=== PATIENT | female | born 1965 | race Caucasian/White ===

== ENCOUNTER → 2018-10-03 10:31 | Outpatient (CLI) | payer OTHER, SELFPAY ==
--- NOTE | 2018-10-03 | DI.MG.S_ITS ---
BILATERAL DIGITAL SCREENING MAMMOGRAM 3D/2D WITH CAD: 10/03/2018 CLINICAL: Routine screening. Family history of breast cancer. Comparison is made to exam dated: 08/24/2016 mammogram - [facility]. The tissue of both breasts is heterogeneously dense. This may lower the sensitivity of mammography. Current study was also evaluated with a Computer Aided Detection (CAD) system. There is new cluster of grouped fine calcifications in the left breast posterior depth superior region seen on the mediolateral oblique view only. No other significant masses, calcifications, or other findings are seen in either breast. IMPRESSION: INCOMPLETE: NEEDS ADDITIONAL IMAGING EVALUATION The new cluster of grouped fine calcifications in the left breast are indeterminate. Additional views are recommended. This exam was interpreted at Station ID: [id number]. NOTE: For mammograms, a report in lay terms will be sent to the patient. Approximately 15% of breast malignancies will not be visualized mammographically. In the management of a palpable breast mass, a negative mammogram must not discourage biopsy of a clinically suspicious lesion. Electronically Signed By: Zuri clay/:10/04/2018 13:27:58 letter sent: Additional Imaging Needed ACR BI-RADS Category 0: Incomplete 3340F
== END ==
PROVIDERS: Visit Provider Nurse Practitioner Family
DX: Z12.31 Encounter for screening mammogram for malignant neoplasm of breast (principal); Z80.3 Family history of malignant neoplasm of breast
CPT/HCPCS: 77063; 77067

== ENCOUNTER → 2018-10-20 08:47 | Outpatient (CLI) | payer OTHER, SELFPAY ==
--- NOTE | 2018-10-20 | DI.MG.S_ITS ---
UNILATERAL LEFT DIGITAL DIAGNOSTIC MAMMOGRAM 3D/2D WITH ADDITIONAL VIEWS: 10/20/2018 CLINICAL: Additional evaluation requested from prior study. Comparison is made to exams dated: 10/03/2018 mammogram - [facility] and 08/24/2016 mammogram - [facility]. The tissue of left breast is heterogeneously dense. This may lower the sensitivity of mammography. There is new 5 mm cluster of grouped fine calcifications in the left breast middle depth superior region seen on the mediolateral oblique view only. These are seen in additional tomosynthesis and compression views. No other significant masses or calcifications are seen in the breast. IMPRESSION: SUSPICIOUS OF MALIGNANCY The new 5 mm cluster of grouped fine calcifications in the left breast middle depth superior region seen on the mediolateral oblique view only are suspicious of malignancy. A stereotactic biopsy is recommended. This exam was interpreted at Station ID: [id number]. NOTE: For mammograms, a report in lay terms will be sent to the patient. Approximately 15% of breast malignancies will not be visualized mammographically. In the management of a palpable breast mass, a negative mammogram must not discourage biopsy of a clinically suspicious lesion. Electronically Signed By: Baljit Salomon M.D. slc/:10/24/2018 09:37:24 letter sent: Biopsy Required ACR BI-RADS Category 4: Suspicious abnormality 3344F
== END ==
PROVIDERS: Visit Provider Nurse Practitioner Family
DX: R92.1 Mammographic calcification found on diagnostic imaging of breast (principal)
CPT/HCPCS: 77065; G0279

== ENCOUNTER → 2018-12-15 07:38 | Outpatient (CLI) | payer OTHER, SELFPAY ==
--- NOTE | 2018-12-15 | DI.MRI.S_ITS ---
BREAST MRI OF BOTH BREASTS: 12/15/2018 CLINICAL: Abnormal mammogram. PROCEDURE: MR BREAST BI WO/W CON INDICATIONS: ABNORMAL MAMMO LEFT BREAST TECHNIQUE: The patient was placed prone in a dedicated breast imaging coil. Precontrast axial STIR and 3D FLASH without fat saturation sequences were obtained. Both before and after bolus injection of contrast, sequential 1-minute axial 3D FLASH with fat saturation sequences for 3 time points, with subtraction images and maximum intensity projections (MIP's) generated. Delayed sagittal FLASH images with fat saturation were also obtained. Computer-aided detection, including computer algorithm analysis of MRI image data for lesion detection and characterization, pharmacokinetic analysis, with further physician review for interpretation, was performed. COMPARISON: Mammograms 11/09/2018, 10/20/2018, 10/03/2018, 08/24/2016. FINDINGS: Image quality: Excellent. There is mild background parenchymal enhancement. Heterogeneous fibroglandular tissue. Right breast: No mass or suspicious non-Mass enhancement. There are at least 3 sub-5 mm foci of enhancement. A few tiny cysts. Left breast: No mass or suspicious non-Mass enhancement. There are at least 2 sub-5 mm foci of enhancement. No abnormality identified in the region of grouped fine calcifications the left breast. A few tiny cysts. Miscellaneous: No enlarged or suspicious lymph nodes. No internal mammary nodes. IMPRESSION: SUSPICIOUS OF MALIGNANCY Overall BIRADS 4 Left Breast for previously seen calcifications in the upper quadrant. Recommend follow-up diagnostic mammogram in 6 month to re-evaluate the calcifications. 1. Right breast: No mass or suspicious non-Mass enhancement. 2. Left breast: No mass or suspicious non-Mass enhancement. No abnormality identified in the region of grouped fine calcifications the left breast. 3. No suspicious adenopathy. COMMENT: The imaging literature indicates that a negative contrast breast MRI examination has a high sensitivity and a moderate specificity for detecting and excluding invasive carcinomas to a detection threshold of 3-5 mm; nonetheless, appropriate clinical and mammographic follow-up are recommended. MRI is not sensitive for detecting DCIS (ductal carcinoma in situ) and may not detect large invasive neoplasms that show only minimal enhancement such as mucinous carcinoma. If there are suspicious calcifications or clinically worrisome palpable masses, then biopsy should still be considered. Invasive neoplasms can be hidden by co-existent and benign enhancement caused by mastitis, hormone therapy effects, radiation therapy, , and recent biopsy or surgery. False positive examinations can occur in a number of circumstances, including breasts that have recently been subject to invasive procedures and those that contain atypical ductal hyperplasia, hormonally stimulated glandular tissue, fat necrosis, or radial scars. Dictated by: Baljit Salomon M.D. on 12/15/2018 at 16:13 This exam was interpreted at Station ID: [id number]. Electronically Signed By: Baljit Salomon M.D. slc/:12/15/2018 16:42:55 ACR BI-RADS Category 4: Suspicious abnormality 3344F
== END ==
PROVIDERS: PCP Nurse Practitioner Family; Visit Provider Nurse Practitioner Family
DX: R92.8 Other abnormal and inconclusive findings on diagnostic imaging of breast (principal); R92.1 Mammographic calcification found on diagnostic imaging of breast
CPT/HCPCS: 77049; A9579

== ENCOUNTER → 2019-08-09 09:45 | Outpatient (CLI) | payer OTHER, SELFPAY ==
--- NOTE | 2019-08-09 | DI.MG.S_ITS ---
BILATERAL DIGITAL DIAGNOSTIC MAMMOGRAM 3D/2D SHORT-TERM FOLLOW-UP: 08/09/2019 CLINICAL: Patient returns for a 6 month follow up of the left breast, due for bilateral imaging. Comparison is made to exams dated: 11/09/2018 mammogram - [facility], 10/20/2018 mammogram, 10/03/2018 mammogram, 12/15/2018 breast MRI - [facility], and 08/24/2016 mammogram - [facility]. The tissue of both breasts is heterogeneously dense. This may lower the sensitivity of mammography. There are stable 0.5 cm grouped fine calcifications in the left breast posterior depth superior region seen on the mediolateral oblique view only. These calcifications appeared new on the screening mammogram on 10/03/2018. Other more diffuse calcifications in both breast were also new or more conspicuous. This may be in part related to difference in mammography technique. No suspicious enhancement was seen in this region on prior MRI. No other significant masses, calcifications, or other findings are seen in either breast. IMPRESSION: PROBABLY BENIGN Stable 0.5 cm grouped fine calcifications in the left breast. These are probably benign given lack of suspicious enhancement on prior MRI. Patient is scheduled for breast MRI to follow this exam. A follow-up left breast mammogram in 6 months is recommended to demonstrate continued stability. Exam findings were conveyed to the patient by the chief psychology. This exam was interpreted at Station ID: [id number]. NOTE: For mammograms, a report in lay terms will be sent to the patient. Approximately 15% of breast malignancies will not be visualized mammographically. In the management of a palpable breast mass, a negative mammogram must not discourage biopsy of a clinically suspicious lesion. Electronically Signed By: Baljit Salomon M.D. [facility] [place]/:08/09/2019 10:46:07 letter sent: Followup Recommended ACR BI-RADS Category 3: Probably benign 3343F
--- NOTE | 2019-08-09 | DI.MRI.S_ITS ---
BREAST MRI OF BOTH BREASTS: 08/09/2019 CLINICAL: Abnormal Left breast. PROCEDURE: MR BREAST BI WO/W CON INDICATIONS: Left breast calcifications. TECHNIQUE: The patient was placed prone in a dedicated breast imaging coil. Precontrast axial STIR and 3D FLASH without fat saturation sequences were obtained. Both before and after bolus injection of contrast, sequential 1-minute axial 3D FLASH with fat saturation sequences for 3 time points, with subtraction images and maximum intensity projections (MIP's) generated. Delayed sagittal FLASH images with fat saturation were also obtained. Contrast: 20 cc ProHance IV contrast. Computer-aided detection, including computer algorithm analysis of MRI image data for lesion detection and characterization, pharmacokinetic analysis, with further physician review for interpretation, was performed. COMPARISON: [facility], , DIAGNOSTIC MAMMO BI, 08/09/2019, 10:07. [facility], , DIAGNOSTIC UNILATERAL LEFT, 11/09/2018, 13:39. [facility], , SPECIAL VIEW LT, 10/20/2018, 9:20. [facility], SCREENING MAMMO BI, 10/03/2018, 11:06. [facility], , MM DIAGNOSTIC MAMMO BILAT 2D, 08/24/2016, 11:13. [facility], , MR BREAST BI WO/W CON, 12/15/2018, 8:27. FINDINGS: Image quality: Excellent. Amount of fibroglandular tissue: Heterogeneous fibroglandular tissue. There is minimal background parenchymal enhancement. Right breast: No mass or suspicious enhancement. Enhancing foci measuring less than 5 mm are stable to decreased. There is corresponding intrinsic T1 hyperintensity and T2 hyperintensity. These most likely represent small intramammary lymph nodes. Left breast: No mass. No suspicious enhancement in the superior left breast posterior depth in the region of grouped calcifications seen on mammogram. Enhancing foci measuring less than 5 mm are stable to decreased. There is corresponding intrinsic T1 hyperintensity and T2 hyperintensity. These most likely represent small intramammary lymph nodes. Miscellaneous: No enlarged lymph nodes. Small axillary lymph nodes are unchanged in appearance. IMPRESSION: PROBABLY BENIGN 1. Right breast: No mass or suspicious enhancement. 2: Left breast: No mass or suspicious enhancement. No clumped or clustered ring enhancement in the superior region posterior depth at the site of grouped calcifications on prior mammograms. 3. No enlarged lymph nodes. BIRADS 3. -Recommend followup left breast diagnostic mammogram for previously seen grouped calcifications. COMMENT: The imaging literature indicates that a negative contrast breast MRI examination has a high sensitivity and a moderate specificity for detecting and excluding invasive carcinomas to a detection threshold of 3-5 mm; nonetheless, appropriate clinical and mammographic follow-up are recommended. MRI is not sensitive for detecting DCIS (ductal carcinoma in situ) and may not detect large invasive neoplasms that show only minimal enhancement such as mucinous carcinoma. If there are suspicious calcifications or clinically worrisome palpable masses, then biopsy should still be considered. Invasive neoplasms can be hidden by co-existent and benign enhancement caused by mastitis, hormone therapy effects, radiation therapy, , and recent biopsy or surgery. False positive examinations can occur in a number of circumstances, including breasts that have recently been subject to invasive procedures and those that contain atypical ductal hyperplasia, hormonally stimulated glandular tissue, fat necrosis, or radial scars. Dictated by: Baljit Salomon M.D. on 08/09/2019 at 15:10 This exam was interpreted at Station ID: [id number]. Electronically Signed By: Baljit Salomon M.D. slc/:08/09/2019 15:38:48 letter sent: Followup Recommended ACR BI-RADS Category 3: Probably benign 3343F
== END ==
PROVIDERS: PCP Nurse Practitioner Family; Referring Provider Nurse Practitioner Family; Visit Provider Nurse Practitioner Family
DX: R92.8 Other abnormal and inconclusive findings on diagnostic imaging of breast (principal); R92.1 Mammographic calcification found on diagnostic imaging of breast
CPT/HCPCS: 77049; 77066; G0279; A9579

== ENCOUNTER → 2020-03-03 08:43 | Outpatient (CLI) | payer OTHER, SELFPAY ==
--- NOTE | 2020-03-03 | DI.MG.S_ITS ---
UNILATERAL LEFT DIGITAL DIAGNOSTIC MAMMOGRAM 3D/2D: 03/03/2020 CLINICAL: Patient returns for a 6 month follow up of the left breast. Comparison is made to exams dated: 08/09/2019 breast MRI, 08/09/2019 mammogram, 12/15/2018 breast MRI - [facility], 11/09/2018 mammogram - [facility], 10/20/2018 mammogram, and 10/03/2018 mammogram - [facility]. The tissue of left breast is heterogeneously dense. This may lower the sensitivity of mammography. Redemonstration of previously described 0.5 cm grouped fine calcifications in the left breast superior region seen on comparison mammograms of 10/20/18, 10/03/18, and 08/09/2019. These were not able to be targeted for stereotactic biopsy. No correlates seen on either MRIs. These again are seen on the mediolateral oblique view only. No other significant masses or calcifications are seen in the breast. IMPRESSION: PROBABLY BENIGN The stable 0.5 cm grouped fine calcifications in the left breast are probably benign. There were no correlating abnormalities seen on comparison MRIs. A follow-up mammogram in 6 months is recommended to demonstrate stability. The patient will also be due for screening mammogram of the contralateral breast at that time. Findings and recommendations were conveyed to the patient during today's evaluation. This exam was interpreted at Station ID: [id number]. NOTE: For mammograms, a report in lay terms will be sent to the patient. Approximately 15% of breast malignancies will not be visualized mammographically. In the management of a palpable breast mass, a negative mammogram must not discourage biopsy of a clinically suspicious lesion. Electronically Signed By: Magdi Bustamante M.D. at/:03/03/2020 09:41:48 letter sent: Followup Recommended ACR BI-RADS Category 3: Probably benign 3343F
== END ==
PROVIDERS: PCP Nurse Practitioner Family; Referring Provider Nurse Practitioner Family; Visit Provider Nurse Practitioner Family
DX: R92.8 Other abnormal and inconclusive findings on diagnostic imaging of breast (principal); R92.1 Mammographic calcification found on diagnostic imaging of breast
CPT/HCPCS: 77065; G0279

== ENCOUNTER → 2020-10-13 09:18 | Outpatient (CLI) | payer OTHER, SELFPAY ==
--- NOTE | 2020-10-13 | DI.MG.S_ITS ---
BILATERAL DIGITAL DIAGNOSTIC MAMMOGRAM 3D/2D: 10/13/2020 CLINICAL: Short follow up, due bilateral. Comparison is made to exams dated: 03/03/2020 mammogram, 08/09/2019 mammogram - [facility], 11/09/2018 mammogram - [facility], 10/20/2018 mammogram, and 10/03/2018 mammogram - [facility]. The tissue of both breasts is heterogeneously dense. This may lower the sensitivity of mammography. There are 0.5 cm grouped fine calcifications in the left breast posterior depth superior region seen on the mediolateral oblique view only. These are not significantly changed. No other significant masses, calcifications, or other findings are seen in either breast. IMPRESSION: BENIGN Stable 0.5 cm grouped fine calcifications in the left breast posterior depth superior region seen on the mediolateral oblique view only. This finding has demonstrated two years of stability and is consistent with a benign process. There is no mammographic evidence of malignancy. Return to annual mammogram screening schedule is recommended. Findings and recommendations were conveyed to the patient during today's evaluation. This exam was interpreted at Station ID: [id number]. NOTE: For mammograms, a report in lay terms will be sent to the patient. Approximately 15% of breast malignancies will not be visualized mammographically. In the management of a palpable breast mass, a negative mammogram must not discourage biopsy of a clinically suspicious lesion. Electronically Signed By: Magdi Bustamante M.D. aty/:10/13/2020 10:16:26 letter sent: Normal Exam ACR BI-RADS Category 2: Benign Finding(s) 3342F
== END ==
PROVIDERS: PCP Family Medicine; Referring Provider Family Medicine; Visit Provider Family Medicine
DX: R92.8 Other abnormal and inconclusive findings on diagnostic imaging of breast (principal); R92.1 Mammographic calcification found on diagnostic imaging of breast
CPT/HCPCS: 77066; G0279

== ENCOUNTER → 2022-02-18 07:55 | Outpatient (CLI) | payer OTHER, SELFPAY ==
--- NOTE | 2022-02-18 | DI.MG.S_ITS ---
BILATERAL DIGITAL SCREENING MAMMOGRAM 3D/2D WITH CAD: 02/18/2022 CLINICAL: Routine screening. Family history of breast cancer. Comparison is made to exams dated: 10/13/2020 mammogram, 03/03/2020 mammogram, 08/09/2019 mammogram - [facility], 11/09/2018 mammogram - [facility], and 08/24/2016 mammogram - [facility]. Both breasts are heterogeneously dense, which may obscure small masses (category c / 51-75% glandular tissue). Current study was also evaluated with a Computer Aided Detection (CAD) system. No significant masses, calcifications, or other findings are seen in either breast. There has been no significant interval change. IMPRESSION: NEGATIVE There is no mammographic evidence of malignancy. A 1 year screening mammogram is recommended. This exam was interpreted at Station ID: [id number]. NOTE: For mammograms, a report in lay terms will be sent to the patient. Approximately 15% of breast malignancies will not be visualized mammographically. In the management of a palpable breast mass, a negative mammogram must not discourage biopsy of a clinically suspicious lesion. Electronically Signed By: Baljit zambrano/ralf:02/18/2022 08:25:24 letter sent: Normal Exam ACR BI-RADS Category 1: Negative 3341F
== END ==
PROVIDERS: PCP Family Medicine; Referring Provider Family Medicine; Visit Provider Family Medicine
DX: Z12.31 Encounter for screening mammogram for malignant neoplasm of breast (principal); Z80.3 Family history of malignant neoplasm of breast
CPT/HCPCS: 77063; 77067

== ENCOUNTER → 2023-03-23 08:02 | Outpatient (CLI) | payer OTHER, SELFPAY ==
--- NOTE | 2023-03-23 08:02 | DI.MG.S_ITS ---
BILATERAL DIGITAL SCREENING MAMMOGRAM 3D/2D WITH CAD: 03/23/2023 CLINICAL: Routine screening. Family history of breast cancer. Comparison is made to exams dated: 02/18/2022 mammogram, 10/13/2020 mammogram, 03/03/2020 mammogram, 08/09/2019 mammogram, and 10/03/2018 mammogram - [facility]. Both breasts are heterogeneously dense, which may obscure small masses (category c / 51-75% glandular tissue). Current study was also evaluated with a Computer Aided Detection (CAD) system. There are benign diffuse calcifications in both breasts. No significant masses, calcifications, or other findings are seen in either breast. There has been no significant interval change. IMPRESSION: BENIGN There is no mammographic evidence of malignancy. A 1 year screening mammogram is recommended. Based on the Tyrer Cuzick model (a risk assessment model) the patient's lifetime risk is 15.8% and her 10 year risk is 5.9%. According to the ACR, ACS, and NCCN guidelines, an annual breast MRI exam along with mammogram is recommended if the patient's lifetime risk is 20% or greater. This exam was interpreted at Station ID: [id number]. NOTE: For mammograms, a report in lay terms will be sent to the patient. Approximately 15% of breast malignancies will not be visualized mammographically. In the management of a palpable breast mass, a negative mammogram must not discourage biopsy of a clinically suspicious lesion. Electronically Signed By: Baljit zambrano/ralf:03/23/2023 12:41:49 letter sent: Normal Exam ACR BI-RADS Category 2: Benign Finding(s) 3342F
== END ==
LOC: MAMMO 08:02
PROVIDERS: PCP Family Medicine; Referring Provider Family Medicine; Visit Provider Family Medicine
DX: Z12.31 Encounter for screening mammogram for malignant neoplasm of breast (principal); Z80.3 Family history of malignant neoplasm of breast; R92.333 Mammographic heterogeneous density, bilateral breasts
CPT/HCPCS: 77063; 77067

== ENCOUNTER → 2024-04-10 08:17 | Outpatient (CLI) | payer OTHER, SELFPAY ==
--- NOTE | 2024-04-10 08:19 | DI.MG.S_ITS ---
BILATERAL DIGITAL SCREENING MAMMOGRAM 3D/2D WITH CAD: 04/10/2024 CLINICAL: Routine screening. Family history of breast cancer. Comparison is made to exams dated: 03/23/2023 mammogram, 02/18/2022 mammogram, 10/13/2020 mammogram, and 08/09/2019 breast MRI - [facility]. The breasts are heterogeneously dense, which may obscure small masses (category c / 51-75% glandular tissue). Current study was also evaluated with a Computer Aided Detection (CAD) system. There is a possible asymmetry in the right breast posterior depth superior region seen on the mediolateral oblique view only. No other significant masses, calcifications, or other findings are seen in either breast. IMPRESSION: INCOMPLETE: NEED ADDITIONAL IMAGING EVALUATION The possible asymmetry in the right breast is indeterminate. Additional views with possible ultrasound are recommended. Based on the Tyrer Cuzick model (a risk assessment model) the patient's lifetime risk is 15.5% and her 10 year risk is 6.1%. According to the ACR, ACS, and NCCN guidelines, an annual breast MRI exam along with mammogram is recommended if the patient's lifetime risk is 20% or greater. This exam was interpreted at Station ID: [id number]. NOTE: For mammograms, a report in lay terms will be sent to the patient. Approximately 15% of breast malignancies will not be visualized mammographically. In the management of a palpable breast mass, a negative mammogram must not discourage biopsy of a clinically suspicious lesion. Electronically Signed By: Baljit Salomon M.D. slc/:04/10/2024 15:09:17 letter sent: Additional Imaging Needed ACR BI-RADS Category 0: Incomplete: Need Additional Imaging Evaluation
== END ==
LOC: MAMMO 08:18
PROVIDERS: PCP Family Medicine; Referring Provider Family Medicine; Visit Provider Family Medicine
DX: Z12.31 Encounter for screening mammogram for malignant neoplasm of breast (principal); Z80.3 Family history of malignant neoplasm of breast; N64.89 Other specified disorders of breast
CPT/HCPCS: 77063; 77067

== ENCOUNTER → 2024-06-20 11:44 | Outpatient (CLI) | payer OTHER, SELFPAY ==
--- NOTE | 2024-06-20 11:46 | DI.MG.S_ITS ---
MM diagnostic mammo unilat RT: 06/20/2024. BI-RADS: 1 CLINICAL: 58-year old female for right diagnostic mammogram that is a recall from screening, bilateral, digital, tomosynthesis, w/mammo cad on 04/10/2024. Tyrer-Cuzick lifetime risk of 10.8%. No personal or first-degree family history of breast cancer. Current reported family history of breast cancer: maternal grandmother. PRIOR EXAMS 04/10/2024, 03/23/2023, 02/18/2022, 10/13/2020, 03/03/2020, 08/09/2019, 12/15/2018, 11/09/2018, 10/20/2018, 10/03/2018, 08/24/2016, 02/25/2015. MAMMOGRAPHY TECHNIQUE: 2D and 3D (tomosynthesis) digital mammographic views obtained, with additional images as needed for full coverage. Current study was also evaluated with a Computer Aided Detection (CAD) system. DENSITY Right: C. The breasts are heterogeneously dense, which may obscure small masses. MAMMOGRAPHY FINDINGS Right: MLO only, Upper, Posterior depth: No suspicious mass, asymmetry, microcalcification, or other abnormality seen. The questioned asymmetry in the superior right breast at posterior depth is less conspicuous with spot compression views. In retrospect, this finding is also mammographically stable dating back to 2014, and represents normal fibroglandular tissue. IMPRESSION: Right * No evidence of malignancy. RECOMMENDATIONS Bilateral * Annual screening mammography. COMMENTS: Findings and recommendations were conveyed to the patient during today's evaluation. OVERALL ASSESSMENT CATEGORY BI-RADS-1: Negative. The [employer] recommends annual screening mammography beginning at age 40 for women with average risk of breast cancer. ELECTRONICALLY SIGNED: Keturah Carter M.D. on 06/20/2024 at 01:37:48 PM PT Interpreting Station ID: [id number]
== END ==
PROVIDERS: PCP Family Medicine; Referring Provider Family Medicine; Visit Provider Family Medicine
DX: R92.8 Other abnormal and inconclusive findings on diagnostic imaging of breast (principal); Z80.3 Family history of malignant neoplasm of breast; R92.333 Mammographic heterogeneous density, bilateral breasts
CPT/HCPCS: 77065; G0279